=== PATIENT | male | born 1955 | race Caucasian/White ===

== ENCOUNTER 2022-01-03 19:34 | Emergency (ER) | payer OTHER, SELFPAY ==
[2022-01-03 19:37] VITALS: BP 188/87; PULSE 91; RESP 20; TEMP 36.9; O2SAT 97
--- NOTE | 2022-01-03 20:10 | ED.BACK ---
HPI - Back Pain/Injury General Chief Complaint: Back Pain/Injury Stated Complaint: back pain Time Seen by Provider: 01/03/22 19:57 Source: patient Mode of arrival: Ambulatory History of Present Illness HPI Narrative: Patient is a 66-year-old male here for evaluation of lower back pain. He states that symptoms started earlier today when he was out mowing the lawn. There was not 1 specific incident that caused his back to hurt. 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 No fevers. No urinary symptoms. No change in bowel habits. Related Data Allergies Allergy/AdvReac Type Severity Reaction Status Date / Time Penicillins [PENICILLINS] Allergy Unknown UNKNOWN Unverified 02/08/18 12:05 AN tetracycline [TETRACYCLINE] Allergy Unknown UNKNOWN Unverified 02/08/18 12:05 AN INFANT Review of Systems Gastrointestinal Gastrointestinal: Reports system reviewed and no additional complaints, except as documented Genitourinary Genitourinary: Reports system reviewed and no additional complaints, except as documented Musculoskeletal Musculoskeletal: Reports system reviewed and no additional complaints, except as documented and Reports as per HPI Integumentary/Breasts Skin/Breast: Reports system reviewed and no additional complaints, except as documented Neurologic Neurologic: Reports system reviewed and no additional complaints, except as documented and Reports as per HPI Patient History Medical History Lumbar stenosis Social History (Updated 01/04/22 @ 03:33 by Nickolas Oakley DO) marital status: Exam Initial Vital Signs Initial Vital Signs: Vital Signs Temperature 98.4 F 01/03/22 19:37 Pulse Rate 91 H 01/03/22 19:37 Respiratory Rate 20 01/03/22 19:37 Blood Pressure 188/87 H 01/03/22 19:37 Pulse Oximetry 97 01/03/22 19:37 Back/Spine/Pelvis Thoracic/Lumbar Spine: paraspinal tenderness (Left lumbar), No thoracic spinal tenderness and No lumbar spinal tenderness Neuro Gait: normal gait Extrem General: normal to inspection Course Orders Ordered: Discontinued Medications Hydrocodone Bitart/Acetaminophen (Hydrocodone/Acet 5/325 Prepack) 1 bottle MISC SEEINSTR ONE Stop: 01/03/22 20:11 Last Admin: 01/03/22 20:26 Dose: 1 bottle Documented by: LAYTON Cyclobenzaprine HCl (Cyclobenzaprine 10 Mg Prepack) 1 bottle MISC SEEINSTR ONE Stop: 01/03/22 20:11 Last Admin: 01/03/22 20:26 Dose: 1 bottle Documented by: LAYTON Hydromorphone HCl (Hydromorphone 1 Mg Inj) 1 mg IM NOW ONE Stop: 01/03/22 20:11 Last Admin: 01/03/22 20:25 Dose: 1 mg Documented by: LAYTON Ketorolac Tromethamine (Ketorolac 30 Mg/Ml Vial) 30 mg IM NOW ONE Stop: 01/03/22 20:11 Last Admin: 01/03/22 20:25 Dose: 30 mg Documented by: LAYOTN Vital Signs Vital signs: Vital Signs - 8 hr 01/03/22 19:37 01/03/22 20:30 Temperature 98.4 F Pulse Rate 91 H 79 Respiratory Rate 20 16 Blood Pressure 188/87 H 177/84 H Pulse Oximetry 97 97 MDM - Back Pain/Injury MDM Narrative Medical decision making narrative: No indication for radiologic studies. Does have left-sided paraspinal lumbar pain a had SI joint pain to the left. Suspect musculoskeletal. Low suspicion for cauda equina. Low suspicion for acute surgical pathology. Will provide symptom treatment. Was given return precautions. Discharge Plan Departure Patient Disposition: Home Clinical Impression: Strain of lumbar region Instructions: DI for Back Strain or Sprain Activity Restrictions/Additional Instructions: I do recommend that you continue with conservative measures to include heat and ice and massage and stretching. You can take Tylenol/ibuprofen for discomfort. I would expect your symptoms to improve over the next couple days. If symptoms are not improving you need to follow-up with your primary doctor to discuss further evaluation. Referrals: Glenn Root MD [Primary Care Provider] -
[2022-01-03] MEDS: HYDROMORPHONE 1 MG INJ IM (20:25)
[2022-01-03] MEDS: KETOROLAC 30 MG/ML VIAL IM (20:25)
[2022-01-03] MEDS: CYCLOBENZAPRINE 10 MG PREPACK 1 BOTTLE MISC (20:26)
[2022-01-03] MEDS: HYDROCODONE/ACET 5/325 PREPACK 1 BOTTLE MISC (20:26)
[2022-01-03 20:30] VITALS: BP 177/84; PULSE 79; RESP 16; O2SAT 97
== END 2022-01-03 20:33 | disposition home or self-care (01) ==
PROVIDERS: Emergency Provider Emergency Medicine; Family Provider Internal Medicine; PCP Internal Medicine
DX: S39.012A Strain of muscle, fascia and tendon of lower back, initial encounter (principal); X58.XXXA Exposure to other specified factors, initial encounter
CPT/HCPCS: 96372; 99283; J1170; J1885

== ENCOUNTER 2022-03-16 01:47 | Emergency (ER) | payer MEDICARE, OTHER, SELFPAY ==
[2022-03-16 01:50] VITALS: BP 196/101; PULSE 72; RESP 17; TEMP 36.6; O2SAT 98
--- NOTE | 2022-03-16 01:58 | ED.ALLEREA ---
HPI - Allergic Reaction General Chief complaint: Skin/Abscess/Foreign Body Stated complaint: ITCHING ALL OVER BODY Time Seen by Provider: 03/16/22 01:47 History of Present Illness HPI narrative: 66M non-smoker without significant medical history presents with a chief complaint of itching over his right shoulder that he has noticed over the past few hours. He denies any trouble breathing or swallowing. He has no face, tongue, lip or throat swelling and denies any widespread rash. He has no chest pain or shortness of breath. He denies abdominal pain, nausea, vomiting or diarrhea. He denies any history of the same. He denies any exposure to known or suspected allergens. He denies new medications, food, pat or other obvious or potential trigger. He did not try any medications or therapies at home prior to coming to see us. Additionally, he complains that 2 of the toes on his left foot have been itchy and feels somewhat similar to his shoulder for the past few months Related Data Allergies Allergy/AdvReac Type Severity Reaction Status Date / Time Penicillins [PENICILLINS] Allergy Unknown UNKNOWN Unverified 02/08/18 12:05 AN tetracycline [TETRACYCLINE] Allergy Unknown UNKNOWN Unverified 02/08/18 12:05 AN Review of Systems Review of Systems Narrative: GENERAL: Denies chills, fatigue, malaise, fever, sweats. HEENT: Denies sinus pain, ear pain, sore throat, difficulty swallowing, dizziness. RESPIRATORY: Denies dyspnea, cough, wheezing, hemoptysis, sputum. CARDIOVASCULAR: Denies chest pain, palpitations, orthopnea, edema, GASTROINTESTINAL: Denies nausea, vomiting, abdominal pain, diarrhea, constipation, melena. : Denies dysuria, frequency, incontinence, hematuria, urinary retention. MUSCULOSKELETAL: denies weakness, joint pain, or bony pain SKIN:see HPI NEUROLOGIC: Denies weakness, headache, numbness, change in speech, confusion, seizures, incoordination. PSYCHIATRIC: No concerning psychosocial issues. 12 point review of systems is negative except for those stated above Patient History Medical History Lumbar stenosis Social History (Updated 01/04/22 @ 03:33 by Nickolas Oakley DO) marital status: Smoking Status: Never smoker Exam Narrative Exam Narrative: GENERAL: [66] year old patient appears stated age. Well-developed patient, in mild distress. HEAD: Atraumatic. Normocephalic. No facial swelling EYES: Pupils equal round and reactive. Extraocular motions intact. No scleral icterus. No injection or drainage. ENT: NO tongue, lip, throat swelling. Nose without bleeding, purulent drainage. Throat without erythema, tonsillar hypertrophy or exudate. Airway patent. NECK: Trachea midline. Non tender CARDIOVASCULAR: Regular rate and rhythm without murmurs, gallops, or rubs. RESPIRATORY: Clear to auscultation. Breath sounds equal bilaterally. No wheezes, rales, or rhonchi. GASTROINTESTINAL: Abdomen soft, non-tender, nondistended. EXTREMITIES: No edema or joint tenderness. BACK: Nontender without deformity or crepitance. No flank tenderness. NEURO: AOx3. SKIN: Very faint, mild pruritic rash on R shoulder without widespread involvement. No urticaria noted. Initial Vital Signs Initial Vital Signs: Vital Signs Temperature 97.8 F 03/16/22 01:50 Pulse Rate 72 03/16/22 01:50 Respiratory Rate 17 03/16/22 01:50 Blood Pressure 196/101 H 03/16/22 01:50 Pulse Oximetry 98 03/16/22 01:50 Course Orders Ordered: Discontinued Medications Famotidine (Famotidine 20 Mg Tablet) 20 mg PO BEDTIME ONE Stop: 03/16/22 02:00 Last Admin: 03/16/22 02:04 Dose: 20 mg Documented by: Vital Signs Vital signs: Vital Signs - 8 hr 03/16/22 01:50 Temperature 97.8 F Pulse Rate 72 Respiratory Rate 17 Blood Pressure 196/101 H Pulse Oximetry 98 MDM - Allergic Reaction MDM Narrative Medical decision making narrative: Patient presents with very mild symptoms, likely allergic in nature that include itching on his right lateral shoulder and a very fine, almost imperceptible rash. He has no widespread symptoms or signs of anaphylaxis. No face, tongue, lip or airway involvement. No wheezing. No GI symptoms. In time, no Benadryl given as he will be driving home, he does have loratadine at home and was encouraged to take a dose upon his arrival home. Patient given extensive return precautions and questions have been answered to his apparent satisfaction Discharge Plan Departure Patient Disposition: Home Clinical Impression: Allergic reaction Instructions: Anaphylaxis Activity Restrictions/Additional Instructions: *You have been diagnosed with [localized allergic reaction]. You have a very reassuring history and physical exam and there is no evidence of severe allergic reaction or anaphylaxis. Your given paperwork discussing anaphylaxis to have some information regarding symptoms associated with severe or life-threatening allergic reaction, but be assured this is not your diagnosis *What to do: *Please continue to take your regular medications as directed. *Please consider the routine use of over the counter antihistamines over the next few days 1. H1 blockers: Benadryl (Diphenhydramine), Zyrtec (Cetirizine), Beverly (Fexofenadine) or Claritin (Loratadine) along with, 2. H2 blockers: Famotidine or Cimetidine 3. Please consider picking up an over the counter anti-itch cream from the pharmacy as this may help as well *If you can please avoid what triggered your reaction today *Please follow up with your primary care provider in 2-3 days, call for an appointment. Let them know you were seen in the Emergency Department and that we ask that you be seen in follow up. We will electronically transmit a record of today's note if your PCP is in our system *If you do not have a primary care provider please contact the [facility] Resource line at [phone]. They will ask some questions about your medical history and help get you set up with a doctor in the community. *Return to Emergency Department if you should have any new, worsening or concerning symptoms, such as swelling of tongue, throat, trouble breathing, or other concerning symptoms Referrals: Glenn Root MD [Primary Care Provider] -
[2022-03-16] MEDS: FAMOTIDINE 20 MG TABLET PO (02:04)
== END 2022-03-16 02:07 | disposition home or self-care (01) ==
PROVIDERS: Emergency Provider Emergency Medicine; Family Provider Internal Medicine; PCP Internal Medicine
DX: T78.40XA Allergy, unspecified, initial encounter (principal)
CPT/HCPCS: 99283; A9270

== ENCOUNTER 2023-05-09 08:35 | Emergency (ER) | payer MEDICARE, OTHER, SELFPAY ==
[2023-05-09 08:42] VITALS: BP 194/97; PULSE 79; RESP 18; TEMP 36.5; O2SAT 97; BMI 29.2
--- NOTE | 2023-05-09 08:50 | DI.CT.S_ITS ---
PROCEDURE: CT FACIAL BONES WO CON INDICATIONS: rock hit cheek, large hematoma, left maxillary TECHNIQUE: Noncontrast 2.5 mm thick axial images acquired from the mandible through the frontal sinuses, with coronal and sagittal reformatting. For radiation dose reduction, the following was used: automated exposure control, adjustment of mA and/or kV according to patient size. COMPARISON: None. FINDINGS: Image quality: Excellent. Bones and teeth: Orbital apple are intact. Sinus apple show no fracture or deformity. Nasal bones and septum are intact. Visualized portions of the mandible demonstrate no fractures or subluxation. Zygomatic arches are intact. Pterygoid plates are intact. Visualized portions of the skull base and auditory canals are intact. Sinuses: Mild mucosal thickening in the bilateral maxillary sinuses. Paranasal sinuses are aerated, without fluid levels. Mastoid air cells are aerated. Soft tissues: Left infraorbital soft tissue hematoma, (3/56), moderate-sized. No enlarged lymph nodes. No soft tissue lacerations or debris. Vascular: Visualized vascular structures appear normal in the absence of contrast. Bony vascular foramina and canals are intact. IMPRESSION: Left infraorbital moderate-sized soft tissue hematoma. No underlying fracture. Dictated by: Jacobo Blackwood M.D. on 05/09/2023 at 10:04 Approved by: Jacobo Blackwood M.D. on 05/09/2023 at 10:18
--- NOTE | 2023-05-09 08:51 | ED_ITS ---
HPI - Wound/Laceration General Chief Complaint: Wound/Laceration Stated Complaint: black eye Time Seen by Provider: 05/09/23 08:47 Source: patient Mode of arrival: Ambulatory Limitations: no limitations History of Present Illness HPI narrative: This is a 68-year-old male who states loratadine as his only daily medication. Patient states yesterday was working in the [employer] his was using a weed whacker when a rock or a pebble flew up and hit him in the left cheek. Patient states he is had increasing swelling and bruising states seems to go out and down since yesterday. Patient states was painful at the time but is not that painful currently he does feel some pressure. He denies any vision changes. He denies any eye pain or difficulty with movement of his eye. Denies any other injuries. Patient denies any headache. No other changes appreciated. Patient states no aspirin or other blood thinners. He states loratadine his only medication. He is had prior bilateral knee surgeries. No tobacco, occasional alcohol, no illicit. Related Data Allergies Allergy/AdvReac Type Severity Reaction Status Date / Time Penicillins [PENICILLINS] Allergy Unknown UNKNOWN Verified 05/09/23 08:45 AN tetracycline [TETRACYCLINE] Allergy Unknown UNKNOWN Verified 05/09/23 08:45 AN Review of Systems Review of Systems ROS Unobtainable: All systems reviewed & are unremarkable except as noted in HPI and below Patient History Medical History Lumbar stenosis Social History marital status: Smoking Status: Never smoker Smoking Status: Never smoker alcohol intake frequency: 0-2 drinks per day Substance Use Type: does not use Exam Narrative Exam Narrative: GEN: Patient appears in mild distress. HEAD: No evidence of trauma, no raccoon/Kelsey sign. NECK: Nontender, painless range of motion, trachea midline Negative Nexus criteria, there is no midline line tenderness, distracting injury, altered mental status, neuro deficit, recent EtOH. EYES: PERRLA, EOMI Visual acuity: right 20/30, left 20/30 without correction. General: no globe trauma Eyelids: normal inspection. . Conjunctiva/Sclera: normal inspection Corneas: normal inspection. EOM: intact, no palsy/entrapment Pupils: PERRL, normal accomadation, pupil normal ENT: Patient has a hematoma proximally she 4 x 3 cm in size of the left maxillary region below the eye. Patient eyelids do not appear to be involved., trachea is midline, TM's are normal no hemotypanum, Nares are clear, no septal hematoma, no dental or oral injury, airway is normal and with normal occlusion, No bony tenderness RESP: Chest is nontender and has symmetric movement, no ecchymosis, breath sounds are normal no crackles, wheezes or rales CVS: Heart sounds are normal, no murmur noted, No JVD. ABG/GI: Nontender, soft, normal bowel sounds, no distention, no organomegaly NEURO: Oriented AOx3, neuro is grossly intact, sensation and motor is normal all 4 extremities moving, cranial nerves II through XII are intact, GCS is 15 PSYCH: Normal mood and affect SKIN: Intact, warm and dry, no crepitus and without decubitus, ecchymosis as described above. BACK: No CVA tenderness, no vertebral tenderness, no step-off's, no crepitus EXT: Atraumatic, normal range of motion and sensation. Initial Vital Signs Initial Vital Signs: Vital Signs Temperature 97.7 F 05/09/23 08:42 Pulse Rate 79 05/09/23 08:42 Respiratory Rate 18 05/09/23 08:42 Blood Pressure 194/97 H 05/09/23 08:42 Pulse Oximetry 97 05/09/23 08:42 Oxygen Delivery Method Room Air 05/09/23 08:42 Course Orders Ordered: ED Orders 05/09/23 08:50 CT facial bones wo con Stat Vital Signs Vital signs: Vital Signs - 8 hr 05/09/23 08:42 05/09/23 10:33 Temperature 97.7 F Pulse Rate 79 77 Respiratory Rate 18 18 Blood Pressure 194/97 H 183/101 H Pulse Oximetry 97 99 Oxygen Delivery Method Room Air Room Air MDM - Wound/Laceration Imaging Data facial bonest CT: Radiologist's Impression: [address] [address] [address] Scan Report Signed Patient: Sundeep Scruggs MR#: [id number] : 1955 Acct:[id number] Age/Sex: 68 / M Date of Service: 05/09/23 Loc: ED Accession Number: [id number] ?? Procedure: CT facial bones wo con Ordering Provider: Daja Barriga D.O. PROCEDURE:? CT FACIAL BONES WO CON ? INDICATIONS:? rock hit cheek, large hematoma, left maxillary ? TECHNIQUE:? Noncontrast 2.5 mm thick axial images acquired from the mandible through the frontal sinuses, with coronal and sagittal reformatting.? For radiation dose reduction, the following was used:? automated exposure control, adjustment of mA and/or kV according to patient size.? ? COMPARISON:? None. ? FINDINGS:? Image quality:? Excellent.? ? Bones and teeth:? Orbital apple are intact.? Sinus apple show no fracture or deformity.? Nasal bones and septum are intact.? Visualized portions of the mandible demonstrate no fractures or subluxation.? Zygomatic arches are intact.? Pterygoid plates are intact.? Visualized portions of the skull base and auditory canals are intact.? ? Sinuses:? Mild mucosal thickening in the bilateral maxillary sinuses.? Paranasal sinuses are aerated, without fluid levels.? Mastoid air cells are aerated.? ? Soft tissues:? Left infraorbital soft tissue hematoma, (), moderate-sized.? ? No enlarged lymph nodes.? No soft tissue lacerations or debris.? ? Vascular:? Visualized vascular structures appear normal in the absence of contrast.? Bony vascular foramina and canals are intact.? ? IMPRESSION:? Left infraorbital moderate-sized soft tissue hematoma.? No underlying fracture. ? ? Dictated by: Jacobo Blackwood M.D. on 05/09/2023 at 10:04 ? ? Approved by: Jacobo Blackwood M.D. on 05/09/2023 at 10:18?? [facility] Narrative Medical decision making narrative: 68-year-old male who states he was hit in the face by a pebble or rock while working on his lawn his was using a weed whacker and 1 was kicked up and hit him. No eye pain his eye does not appear to be involved he has quite a bit of bruising over the left maxilla so facial bone CT was obtained this is negative for fracture. Moderate-sized hematoma. Discussed return precautions it is an area that is difficult to bandage would require covering patient's eye which he defers. Discussed care, return precautions and answered all questions. Discharge Plan Departure Patient Disposition: Home Clinical Impression: Traumatic ecchymosis of face Instructions: DI for Hematoma (Bruise) Activity Restrictions/Additional Instructions: Follow-up with your physician for recheck, your bruising should resolve but may take several weeks. You may notice some of the bruising drains downwards, please return if it seems to be growing in size. Your imaging today does not show any fractures or breaks to the bones of the face. You may use ice to the affected area. You can take Tylenol and/or ibuprofen as needed for discomfort. Please return for rapidly worsening symptoms increasing swelling, redness, pain in your, face, severe headaches, vomiting or other new or concerning changes Referrals: Jose Patricio MD [Primary Care Provider] - Stand Alone Forms: Patient Portal/API
[2023-05-09 10:33] VITALS: BP 183/101; PULSE 77; RESP 18; O2SAT 99
== END 2023-05-09 10:40 | disposition home or self-care (01) ==
PROVIDERS: Emergency Provider Emergency Medicine; Family Provider Internal Medicine; PCP Family Medicine
DX: S00.83XA Contusion of other part of head, initial encounter (principal); W22.8XXA Striking against or struck by other objects, initial encounter
CPT/HCPCS: 70486; 99283; 99284

== ENCOUNTER 2023-09-21 04:15 | Emergency (ER) | payer MEDICARE, OTHER, SELFPAY ==
--- NOTE | 2023-09-21 04:20 | ED_ITS ---
HPI - General Adult General Chief complaint: Upper Respiratory Symptoms Stated complaint: cold wants to rule out covid Time Seen by Provider: 09/21/23 04:20 History of Present Illness HPI narrative: 68-year-old gentleman with a history of prostate cancer post radiation treatment currently living with a with multiple medical issues presents with 24 hours of upper respiratory symptoms, requesting a COVID test in light of his 's medical issues. He notes that he has a mild cough runny nose he is not particularly short of breath he is not having chest pain no headaches low-grade fevers and positive myalgias. Related Data Previous Rx's Medication Instructions Recorded benzonatate 200 mg capsule 200 mg PO BID-TID PRN cough #14 09/21/23 caps Allergies Allergy/AdvReac Type Severity Reaction Status Date / Time Penicillins [PENICILLINS] Allergy Unknown UNKNOWN Verified 05/09/23 08:45 AN INFANT tetracycline [TETRACYCLINE] Allergy Unknown UNKNOWN Verified 05/09/23 08:45 AN INFANT Review of Systems Review of Systems Narrative: Pertinent positive and negative findings as per HPI Patient History Medical History (Updated 09/21/23 @ 04:43 by Hillary Maki MD) Prostate cancer Lumbar stenosis Social History marital status: Smoking Status: Never smoker Smoking Status: Never smoker alcohol intake frequency: 0-2 drinks per day Substance Use Type: does not use Exam Initial Vital Signs Initial Vital Signs: Vital Signs Temperature 97.6 F 09/21/23 04:29 Pulse Rate 69 09/21/23 04:29 Respiratory Rate 18 09/21/23 04:29 Blood Pressure 159/87 H 09/21/23 04:29 Pulse Oximetry 98 09/21/23 04:29 Oxygen Delivery Method Room Air 09/21/23 04:29 General: Healthy appearing, in no acute distress. Able to give a complete and coherent history. Well-nourished well-developed HEENT: Moist mucous membranes, normal sclera with reactive pupils, minor nasal congestion Neck: No cervical adenopathy Respiratory: Lungs are clear to auscultation, no wheezing no rales no rhonchi. Full and symmetrical air movement Cardiac: Regular rate and rhythm no murmurs no bruits Neurologic: Grossly neurologically intact with no obvious asymmetries or abnormalities Psych: Cooperative, appropriate insight and affect Course Orders Ordered: ED Orders 09/21/23 04:40 Covid-19 + FLU A/B + RSV - PCR Stat Vital Signs Vital signs: Vital Signs - 8 hr 09/21/23 04:29 Temperature 97.6 F Pulse Rate 69 Respiratory Rate 18 Blood Pressure 159/87 H Pulse Oximetry 98 Oxygen Delivery Method Room Air Medical Decision Making Lab Data Labs: Lab Results 09/21/23 Range/Units 04:40 SARS-CoV-2 (PCR) Negative (Negative) Influenza A (RT-PCR) Flu a negative (NEGATIVE) Influenza B (RT-PCR) Flu b negative (NEGATIVE) RSV (PCR) Negative (Negative) MDM Narrative Medical decision making narrative: CC: Upper respiratory symptoms Complicating co-morbidities: History of prostate cancer Data collected from: patient Social determinants of health that may influence the patients condition: with multiple medical conditions at risk for severe infections Differential considered: Upper respiratory infection, pneumonia Exam documented above, pertinent findings include: Nonproductive cough, mild nasal congestion remainder of exam is entirely benign Lab Test results independently reviewed as above. Pertinent findings: Discussion: 68-year-old gentleman who presents requesting COVID testing, he wants to know how to quarantine in a way that his does not become infected with his virus. Additional Information: Text four pack viral results to [phone] Discharge Plan Departure Patient Disposition: Home Clinical Impression: Upper respiratory infection Qualifiers: URI type: unspecified viral URI Qualified Code(s): J06.9 - Acute upper respiratory infection, unspecified Instructions: DI for Viral Upper Respiratory Infection -- Adult Activity Restrictions/Additional Instructions: Thank you for trying to be so responsible after noticing that you have an upper respiratory infection I will text to the results of the COVID/influenza/RSV test that we did this morning The results do not really make much difference in overall recommendations. To try and minimize exposure for your I would recommend that you both wear masks at home, sleeping in separate rooms when possible, using separate bathrooms when possible making sure that hands and exposed surfaces in the home are well cleaned. For you, with your history of prostate abnormalities the Coricidin that you are using to help with your cough may cause acute urinary retention. I would feel horrible if you needed to come back into have a Sierra catheter placed because you were appropriately taking cough medicine. I have sent a prescription for Tessalon Perles to the [facility] for you to bean picker later today. This is a non narcotic cough suppressant medication that may be helpful as you are dealing with your upper respiratory symptoms. The prescription was electronically transmitted to the [facility] If you find that you are getting worse or develop any new symptoms, please feel free to return to the emergency department for further evaluation. Prescriptions: New benzonatate 200 mg capsule 200 mg PO BID-TID PRN (Reason: cough) Qty: 14 0RF Referrals: Jose Patricio MD [Primary Care Provider] - Stand Alone Forms: Patient Portal/API
[2023-09-21 04:29] VITALS: BP 159/87; PULSE 69; RESP 18; TEMP 36.4; O2SAT 98; BMI 63.6
[2023-09-21 05:24] LABS: Influenza A - CEPHEID Flu A NEGATIVE (NEGATIVE); Influenza B - CEPHEID Flu B NEGATIVE (NEGATIVE); Respiratory Syncytial Virus Negative (Negative)
[2023-09-21 05:41] LABS: COVID-19 CEPHEID 4-PLEX PCR Negative (Negative)
== END 2023-09-21 04:55 | disposition home or self-care (01) ==
PROVIDERS: Emergency Provider Emergency Medicine; Family Provider Internal Medicine; PCP Family Medicine
DX: J06.9 Acute upper respiratory infection, unspecified (principal); Z11.52 Encounter for screening for COVID-19
CPT/HCPCS: 0241U; 99281; 99283

== ENCOUNTER 2023-09-28 23:05 | Emergency (ER) | payer MEDICARE, OTHER, SELFPAY ==
[2023-09-28 23:10] VITALS: O2SAT 89
[2023-09-28 23:11] VITALS: BP 159/78; PULSE 83; O2SAT 96
[2023-09-28 23:12] VITALS: BP 159/78; PULSE 84; RESP 18; TEMP 37.1; O2SAT 96; BMI 28.8
[2023-09-28 23:30] VITALS: PULSE 78; O2SAT 95
--- NOTE | 2023-09-28 23:34 | DI.RAD.S_ITS ---
PROCEDURE: XR CHEST 2V INDICATIONS: productive cough 2 weeks TECHNIQUE: 2 views of the chest were acquired. COMPARISON: [facility], CT, CT ANGIO CHEST PE, 10/13/2022, 2:54. FINDINGS: Surgical changes and devices: None. Lungs and pleura: Lungs are clear. No pleural effusions or pneumothorax. Mediastinum: Mediastinal contours are normal. Heart size is normal. Bones and chest wall: No suspicious bony abnormalities. Soft tissues appear unremarkable. IMPRESSION: No acute cardiopulmonary abnormality. Dictated by: Jacobo Blackwood M.D. on 09/28/2023 at 23:50 Approved by: Jacobo Blackwood M.D. on 09/28/2023 at 23:51
--- NOTE | 2023-09-28 23:36 | ED_ITS ---
HPI - URI/Sore Throat General Chief Complaint: Upper Respiratory Symptoms Stated Complaint: coughing Time Seen by Provider: 09/28/23 23:30 Source: patient Mode of arrival: Ambulatory History of Present Illness HPI Narrative: Patient comes to the ED. With type 2 diabetes. He had a history of prostate cancer as well. He has been coughing now for 2 weeks. He says he was prescribed Tessalon Perles with no effect. He has been coughing perpetually and feels very bothered by this persistent cough. No fevers. Headache and sore muscles in the chest from coughing but no nausea or vomiting or diarrhea. No abdominal symptoms. No chest pain. No history of lung disease to his knowledge. He is a nonsmoker. No illicit drug use. Related Data Previous Rx's Medication Instructions Recorded benzonatate 200 mg capsule 200 mg PO BID-TID PRN cough #14 09/21/23 caps codeine 10 mg-guaifenesin 100 mg/5 5 ml PO Q4H PRN cough #120 mL 09/29/23 mL oral liquid (Guaifenesin AC) Allergies Allergy/AdvReac Type Severity Reaction Status Date / Time Penicillins [PENICILLINS] Allergy Unknown UNKNOWN Verified 05/09/23 08:45 AN INFANT tetracycline [TETRACYCLINE] Allergy Unknown UNKNOWN Verified 05/09/23 08:45 AN INFANT Patient History Medical History (Updated 09/29/23 @ 00:59 by Hilario Catherine MD) Prostate cancer Lumbar stenosis Social History marital status: Smoking Status: Never smoker Smoking Status: Never smoker alcohol intake frequency: 0-2 drinks per day Substance Use Type: does not use Exam Narrative Exam Narrative: GENERAL: Alert, cooperative and in no distress. HEAD: Atraumatic. Normocephalic. EYES: Sclera are clear without icterus. Extraocular movements are full. ENT: No rhinorrhea. Oropharynx is moist. Mouth exam is benign. NECK: Supple. Full range of motion. No lymphadenopathy CARDIOVASCULAR: Normal rate and rhythm without murmur gallop or rub. RESPIRATORY: Clear to auscultation. Breath sounds equal bilaterally. No wheezes, rales, or rhonchi. GASTROINTESTINAL: Abdomen soft, non-tender, nondistended. EXTREMITIES: No edema, full range of motion. No obvious trauma. BACK: Normal inspection NEURO: Nonfocal examination, normal speech SKIN: No rash or erythema of visible areas PSYCH: Normally oriented. Normal range of affect. Appropriate behavior Initial Vital Signs Initial Vital Signs: Vital Signs Pulse Oximetry 89 L 09/28/23 23:10 Course Orders Ordered: ED Orders 09/28/23 23:34 Chest [XR chest 2V] Stat CBC Auto Diff [Complete Blood Count AUTO DIFF] Stat CMP [Comprehensive Metabolic Panel] Stat 09/28/23 23:35 EKG-12 Lead Stat 09/28/23 23:41 Covid-19 + FLU A/B + RSV - PCR Stat Guaifenesin/Codeine Phosphate (Codeine/Guaifenesin Liquid 5ml Udc) 10 ml PO NOW ONE Stop: 09/29/23 01:00 Vital Signs Vital signs: Vital Signs - 8 hr 09/28/23 23:10 09/28/23 23:11 09/28/23 23:11 Temperature Pulse Rate 83 Respiratory Rate Blood Pressure 159/78 H Pulse Oximetry 89 L 96 Oxygen Delivery Method 09/28/23 23:12 09/28/23 23:30 09/29/23 00:00 Temperature 98.7 F Pulse Rate 84 78 84 Respiratory Rate 18 Blood Pressure 159/78 H Pulse Oximetry 96 95 96 Oxygen Delivery Method Room Air 09/29/23 00:01 09/29/23 00:01 09/29/23 00:30 Temperature Pulse Rate 76 83 Respiratory Rate Blood Pressure 171/77 H Pulse Oximetry 96 97 Oxygen Delivery Method 09/29/23 00:57 Temperature Pulse Rate 75 Respiratory Rate 18 Blood Pressure 167/86 H Pulse Oximetry 97 Oxygen Delivery Method Room Air MDM - URI/Sore Throat Lab Data 09/29/23 00:15 09/29/23 00:15 Labs: Lab Results 09/28/23 09/29/23 Range/Units 23:41 00:15 WBC 8.9 (4.5-11.0) X10^3/uL RBC 4.68 (4.5-5.9) X10^6/uL Hgb 12.9 L (13.5-17.5) g/dL Hct 38.5 L (41-53) % MCV 82.3 (80-100) fL MCH 27.4 (26-34) PG MCHC 33.4 (30-36) % RDW 15.0 H (11.6-14.8) % Plt Count 281 (150-400) X10^3/uL Neut % (Auto) 76.7 H (50-75) % Lymph % (Auto) 11.7 L (25-40) % [place] % (Auto) 8.3 (3-14) % Eos % (Auto) 2.5 (2-4) % Baso % (Auto) 0.8 (0-2) % Neut # (Auto) 6800 (8995-3543) /uL Lymph # (Auto) 1000 L (1150-6478) /uL [place] # (Auto) 700 (0-900) /uL Eos # (Auto) 200 (0-450) /uL Baso # (Auto) 100 (0-100) /uL Sodium 138 (137-145) mmol/L Potassium 3.8 (3.4-5.1) mmol/L Chloride 102 (98-107) mmol/L Carbon Dioxide 31 (22-32) mmol/L BUN 18 (9-20) mg/dL Creatinine 0.80 (0.66-1.25) mg/dL Estimated GFR > 60 (>60) mL/min BUN/Creatinine Ratio 22.5 H (6-22) Glucose 132 H (80-110) mg/dL Calcium 9.0 (8.4-10.2) mg/dL Total Bilirubin 0.6 (0.2-1.3) mg/dL AST 25 (17-59) IU/L ALT 24 (<50) IU/L Alkaline Phosphatase 73 (38-126) U/L Total Protein 7.2 (6.3-8.2) g/dL Albumin 4.2 (3.5-5.0) g/dL Globulin 3.0 (1.7-4.1) g/dL Albumin/Globulin Ratio 1.4 (1.0-2.8) SARS-CoV-2 (PCR) Negative (Negative) Influenza A (RT-PCR) Flu a negative (NEGATIVE) Influenza B (RT-PCR) Flu b negative (NEGATIVE) RSV (PCR) Negative (Negative) ECG Data Interpretation: ECG obtained at 0003 shows sinus rhythm at 69 beats per minute with a QTC of 426. Poor R-wave progression. Inferior Q-waves indicating prior inferior infarct. No acute ST or T-wave change. Discharge Plan Departure Patient Disposition: Home Clinical Impression: Cough Instructions: Cough Activity Restrictions/Additional Instructions: no dangerous cause for your cough is identified after chest x-ray, viral screening and blood testing. You do have a minor abnormality on your EKG and you should mention this to your primary care doctor to see if they want to do further investigation of any underlying heart disease. I do not believe that your current symptoms are related to this. Use the cough syrup as needed for cough. It does contain a narcotic so you should not use it with alcohol or when you plan to be driving a car or performing other complex activities. Follow-up with your doctor in a week if the cough persists. We will follow-up sooner if you develop any other severe symptoms. Prescriptions: New codeine-guaifenesin [Guaifenesin AC] 10-100 mg/5 mL liquid 5 ml PO Q4H PRN (Reason: cough) Qty: 120 0RF No Action benzonatate 200 mg capsule 200 mg PO BID-TID PRN (Reason: cough) Qty: 14 0RF Referrals: Jose Patricio MD [Primary Care Provider] - Stand Alone Forms: Patient Portal/API
[2023-09-29] VITALS: PULSE 84; O2SAT 96
[2023-09-29 00:01] VITALS: BP 171/77; PULSE 76; O2SAT 96
[2023-09-29 00:30] VITALS: PULSE 83; O2SAT 97
[2023-09-29 00:31] LABS: Add Manual Diff / Slide Review NO; Basophils Absolute Auto 100 /uL (0-100); Basophils Percent Auto 0.8 % (0-2); Eosinophils Absolute Auto 200 /uL (0-450); Eosinophils Percent Auto 2.5 % (2-4); Hematocrit 38.5 % (41-53); Hemoglobin 12.9 g/dL (13.5-17.5); Lymphocytes Absolute Auto 1000 /uL (1100-4500); Lymphocytes Percent Auto 11.7 % (25-40); Mean Corpuscular HGB Conc 33.4 % (30-36); Mean Corpuscular Hemoglobin 27.4 PG (26-34); Mean Corpuscular Volume 82.3 fL (80-100); Monocytes Absolute Auto 700 /uL (0-900); Monocytes Percent Auto 8.3 % (3-14); Neutrophils Absolute Auto 6800 /uL (1500-7000); Neutrophils Percent Auto 76.7 % (50-75); Platelet Count 281 X10^3/uL (150-400); Red Blood Cell Count 4.68 X10^6/uL (4.5-5.9); White Blood Cell Count 8.9 X10^3/uL (4.5-11.0)
[2023-09-29 00:32] LABS: Influenza A - CEPHEID Flu A NEGATIVE (NEGATIVE); Influenza B - CEPHEID Flu B NEGATIVE (NEGATIVE); Respiratory Syncytial Virus Negative (Negative)
[2023-09-29 00:33] LABS: COVID-19 CEPHEID 4-PLEX PCR Negative (Negative)
[2023-09-29 00:37] LABS: Alanine Aminotransferase 24 IU/L (<50); Albumin 4.2 g/dL (3.5-5.0); Albumin Globulin Ratio 1.4 (1.0-2.8); Alkaline Phosphatase 73 U/L (38-126); Aspartate Aminotransferase 25 IU/L (17-59); BUN Creatinine Ratio 22.5 (6-22); Bilirubin Total 0.6 mg/dL (0.2-1.3); Blood Urea Nitrogen 18 mg/dL (9-20); Carbon Dioxide 31 mmol/L (22-32); Chloride 102 mmol/L (98-107); Estimated Glomerular Filt Rate > 60 mL/min (>60); Glucose 132 mg/dL (80-110); HEMOLYSIS < 15 (0-50); Potassium 3.8 mmol/L (3.4-5.1); Sodium 138 mmol/L (137-145); Total Protein 7.2 g/dL (6.3-8.2)
[2023-09-29 00:56] VITALS: BP 161/86; PULSE 78; O2SAT 97
[2023-09-29 00:57] VITALS: BP 167/86; PULSE 75; RESP 18; O2SAT 97
[2023-09-29] MEDS: CODEINE/GUAIFENESIN LIQUID 5ML UDC 10 ML PO (01:10)
== END 2023-09-29 01:23 | disposition home or self-care (01) ==
PROVIDERS: Emergency Provider Family Medicine Addiction Medicine; Family Provider Internal Medicine; PCP Family Medicine
DX: R05.9 Cough, unspecified (principal)
CPT/HCPCS: 0241U; 36415; 71046; 80053; 85025; 93005; 99283

== ENCOUNTER → 2025-02-15 10:20 | Outpatient (CLI) | payer MEDICARE, OTHER, SELFPAY ==
--- NOTE | 2025-02-15 10:25 | DI.RAD.S_ITS ---
PROCEDURE: XR CERVICAL SPINE 4V OR 5V INDICATIONS: BACK PAIN TECHNIQUE: 5 views of the cervical spine acquired. COMPARISON: None. FINDINGS: Bones: No fractures or dislocations to the T1 level. Anterolisthesis of C3 on C4 measures 0.2 cm and of C4 on C5 measures 0.3 cm. Severe disc height loss at the C6-C7 level and moderate disc height loss at the C4-C5 and C5-C6 levels includes adjacent endplate sclerosis and anterior osteophytosis. Moderate multilevel bilateral facet hypertrophy noted. Oblique images demonstrate no bony foraminal stenoses. Soft tissues: No prevertebral soft tissue swelling. IMPRESSION: Degenerative change of the cervical spine including multilevel spondylolisthesis without evidence of acute osseous abnormality. Dictated by: Robbie Dykes M.D. on 02/16/2025 at 2:12 Approved by: Robbie Dykes M.D. on 02/16/2025 at 2:47
--- NOTE | 2025-02-15 10:25 | DI.RAD.S_ITS ---
PROCEDURE: XR LUMBAR SPINE 2-3V INDICATIONS: BACK PAIN TECHNIQUE: 3 views of the lumbar spine were acquired. COMPARISON: None. FINDINGS: Bones: 5 [id number] vertebrae are present. Trace dextroscoliosis has its apex about the anterolisthesis of L5 on S1 measures 0.7 cm. There is otherwise normal bony alignment. Moderate to severe L3-L4 through L5-S1 disc height loss with adjacent endplate sclerosis and anterior osteophytosis. No vertebral body compression fractures. No suspicious bony lesions. Soft tissues: Overlying bowel gas pattern is normal. No suspicious soft tissue calcifications. IMPRESSION: Degenerative change of the lumbar spine including anterolisthesis of L5 on S1 without evidence of acute osseous abnormality. Dictated by: Robbie Dykes M.D. on 02/16/2025 at 1:59 Approved by: Robbie Dykes M.D. on 02/16/2025 at 2:09
== END ==
PROVIDERS: Family Provider Internal Medicine; PCP Family Medicine
DX: M54.12 Radiculopathy, cervical region (principal); M54.50 Low back pain, unspecified; M43.17 Spondylolisthesis, lumbosacral region; M51.379 Other intervertebral disc degeneration, lumbosacral region without mention of lumbar back pain or lower extremity pain; M50.30 Other cervical disc degeneration, unspecified cervical region; M43.12 Spondylolisthesis, cervical region
CPT/HCPCS: 72050; 72100